=== PATIENT | female | born 1955 | race Two or more races ===

== ENCOUNTER 2018-09-14 09:46 | Emergency (ER) | payer BC ==
[~2018-09-14] VITALS: Ht 154.9 cm; Wt 54.9 kg
[2018-09-14 09:52] VITALS: BP 113/76
== END 2018-09-14 10:26 | disposition home or self-care (01) ==
LOC: ER 09:50
DX: S09.8XXA Other specified injuries of head, initial encounter (principal); Z98.890 Other specified postprocedural states; W06.XXXA Fall from bed, initial encounter; Y93.89 Activity, other specified; Y92.89 Other specified places as the place of occurrence of the external cause; Y99.8 Other external cause status
CPT/HCPCS: Z7502